=== PATIENT | female | born 1985 | race Caucasian/White ===

== ENCOUNTER 2016-07-24 12:30 | Inpatient (IN) | payer OTHER ==
[2016-07-24 13:27] LABS: % IMMATURE GRANULYOCYTES 0.5 % (0.0-1.1); ABSOLUTE IMMATURE GRANULOCYTES 0.04 10^3/uL (0.00-0.10); ADD DIFF? NO; ADD MORPH? NO; ADD SCAN? NO; ATYPICAL LYMPHOCYTE FLAG 10 (0-99); FRAGMENT RBC FLAG 0 (0-99); HEMATOCRIT 40.6 % (38.0-47.0); HEMOGLOBIN 13.3 g/dL (12.6-16.3); LEFT SHIFT FLG 0 (0-99); LIPEMIA HEMOLYSIS FLAG 80 (0-99); MEAN CELL HEMOGLOBIN 28.9 pg (27.9-34.1); MEAN CELL HEMOGLOBIN CONCENTR. 32.8 g/dL (32.4-36.7); MEAN CELL VOLUME 88.1 fL (81.5-99.8); MEAN PLATELET VOLUME 11.7 fL (8.7-11.7); PLATELET CLUMPS FLAG 0 (0-99); PLATELET COUNT 179 10^3/uL (150-400); RED BLOOD CELL COUNT 4.61 10^6/uL (4.18-5.33); RED CELL DISTRIBUTION WIDTH 12.6 % (11.5-15.2)
[2016-07-24 13:48] LABS: ANION GAP 10 mEq/L (8-16); CALCIUM 9.5 mg/dL (8.5-10.4); CARBON DIOXIDE 23 mEq/l (22-31); CHLORIDE 109 mEq/L (97-110); CREATININE 0.9 mg/dL (0.6-1.0); ETHANOL SERUM < 10 mg/dL (0-10); GLOMERULAR FILTRATION RATE > 60; GLUCOSE 87 mg/dL (70-100); POTASSIUM 4.1 mEq/L (3.5-5.2); SODIUM 142 mEq/L (134-144)
--- NOTE | 2016-07-24 14:22 | EDPHY ---
H & P Stated Complaint: off meds 1 year having depressive crisis(brought in with counselor) Source: Patient Exam Limitations: No limitations - Personal History LMP (Females 10-55): 22-28 Days Ago Current Tetanus/Diphtheria Vaccine: No - Medical/Surgical History Hx Asthma: No Hx Chronic Respiratory Disease: No Hx Diabetes: No Hx Cardiac Disease: No Hx Renal Disease: No Hx Cirrhosis: No Hx Alcoholism: No Hx HIV/AIDS: No Hx Splenectomy or Spleen Trauma: No Other PMH: depression mood disorder - Family History Significant Family History: No pertinent family hx - Social History Smoking Status: Never smoked Alcohol Use: Rarely Drug Use: None Time Seen by Provider: 07/24/16 13:50 HPI/ROS: HPI: 31-year-old female presents to emergency department voluntarily with chief concern suicidal ideation. Has a diagnosis of bipolar 2, rapid cycling, major depressive disorder. Took herself off of her psychiatric medications a year ago. States she wants to go to sleep and not wake up. Rates her desire to end her life 5/10. Has no definite suicide plan. Has 3 previous suicide attempts in the past. No homicidal ideation. Denies having been an inpatient in any psych facility. Denies alcohol or drug use. Denies visual or auditory hallucination. Denies fever, chills, myalgias, URI symptoms, shortness of breath, chest pain, abdominal pain, nausea, vomiting, diarrhea. ROS:10 point review of systems is negative other than as stated in HPI (Tonia Damian) - Physical Exam Exam: Vital signs stable, reviewed by me General: Awake, alert, calm, cooperative. No acute distress. Head: Normalocephalic. Atraumatic. EENT: PERRLA. EOMI. No pallor or injection. Anicteric. No nystagmus. No injection. TMs intact bilaterally with normal landmarks. No rhinnorhea, nasal passages clear. Oropharynx without redness, exudates, or lesions. Tonsils 2+ bilaterally, no exudates. Neck: Supple, nontender. No lymphadenopathy. Full range of motion. No meningismus. Respiratory: Breathing unlabored. Breath sounds equal bilaterally and clear to auscultation. No adventitious sounds. CV: Chest nontender, atraumatic. Heart rate regular. No murmur, distal pulses 2+ bilaterally. Brisk cap refill all extremities. GI: Abdomen soft, nontender. Bowel sounds normoactive and positive x4 quadrants. : No suprapubic tenderness. No CVA or flank tenderness. Neuro: Alert. Oriented x 3. Speech clear. Nonfocal cranial nerves throughout. Sensation intact all extremities. Skin: Skin warm, dry, intact. No rashes, abrasions, or lacerations. Skin turgor normal. Extremities: Full range of motion in all 4 extremities. Strength 5+ all extremities. Mental status: Tearful, cooperative, avoids eye contact (Tonia Damian) Constitutional: Initial Vital Signs Temperature (C) 36.7 C 07/24/16 12:38 Heart Rate 72 07/24/16 12:38 Respiratory Rate 16 07/24/16 12:38 Blood Pressure 125/56 H 07/24/16 12:38 O2 Sat (%) 97 07/24/16 12:38 O2 Delivery Mode Room Air Allergies/Adverse Reactions: No Known Allergies Allergy (Unverified 07/24/16 12:37) Home Medications: Medication Instructions Recorded Ethinyl Estradiol/Drospirenone 1 each PO DAILY 07/24/16 [Loryna 3 mg-0.02 mg Tablet] Multivitamins [Multivitamin (*)] 1 each PO DAILY 07/24/16 Medical Decision Making ED Course/Re-evaluation: 1430: 31-year-old female presents to emergency department voluntarily with suicidal ideation and depression. Took herself off of her medications 1 year ago. Has no therapist or counselor presently. Has no definite suicide plan but rates her desire to end her life 5/10. Has 3 previous suicide attempts. Medical history includes bipolar 2 with rapid cycling. Patient has been placed on M1 hold pending mental health evaluation. She is medically clear. 1844: Patient has been med cleared. Mental health eval pending. Care of this patient transferred to my colleague Dr. Carey Almanza (Tonia Damian) 2129: The patient is signed out to Dr. Sydni Thompson at change of shift. The patient is stable. (Carey Almanza) I assumed care of the patient at 9:30 p.m.. At midnight, the patient's care was assumed by Dr. Jose Guadalupe Martines. We are currently awaiting admission to [address] [place] [address]. (Sydni Thompson) 0005 care assumed by me from Dr. Romero. Patient pending admission to [address] [place] [address]. 0100 patient has been accepted to [address] Ahumada. I have completed the EMTALA form. (Blayne Martines) Differential Diagnosis: Differential includes but is not limited to functional and major depression, situational depression, anxiety, schizophrenia, bipolar, drug or alcohol related , acute psychosis, metabolic derangement, infection (Tonia Damian) - Data Points Laboratory Results: Laboratory Results 07/24/16 13:10 07/24/16 13:10 07/24/16 07/24/16 13:10 13:10 TSH 2.200 uIU/mL uIU/mL (0.465-4.680) Urine Opiates Screen NEGATIVE (NEGATIVE) Urine Barbiturates NEGATIVE (NEGATIVE) Ur Phencyclidine Scrn NEGATIVE (NEGATIVE) Ur Amphetamine Screen NEGATIVE (NEGATIVE) U Benzodiazepines Scrn NEGATIVE (NEGATIVE) Urine Cocaine Screen NEGATIVE (NEGATIVE) U Marijuana (THC) Screen NEGATIVE (NEGATIVE) Departure - Departure Disposition: Home, Routine, Self-Care Clinical Impression: Suicidal ideation, Depression, Bipolar II disorder Condition: Good
[2016-07-25] MEDS ORDERED: ACETAMINOPHEN 325 MG TAB PO PRN (02:40)
[2016-07-25] MEDS ORDERED: NICOTINE POLACRILEX 2 MG GUM B PRN (02:40)
[2016-07-25] MEDS ORDERED: MAG HYDROX/AL HYDROX/SIMETH 30 ML UDCUP PO PRN (02:40)
[2016-07-25] MEDS ORDERED: MAGNESIUM HYDROXIDE 30 ML UDCUP PO PRN (02:40)
[2016-07-25] MEDS ORDERED: DROSPIRENONE PO SCH ×2 (09:00→13:00)
[2016-07-25] MEDS ORDERED: ETHINYL ESTRADIOL PO SCH ×2 (09:00→13:00)
[2016-07-25] MEDS ORDERED: [UNRECOGNIZED DRUG - OTHER] PO SCH (13:00)
[2016-07-25] MEDS ORDERED: LEVONORGESTREL ETHIN ESTRADIOL PO SCH (13:00)
[2016-07-25] MEDS: LEVONORGESTREL ETHIN ESTRADIOL PO SCH (13:15)
[2016-07-25] MEDS: ZOLPIDEM TARTRATE 5 MG TAB PO PRN (21:05)
--- NOTE | 2016-07-25 22:32 | BCON ---
[f rep ] BEHAVIORAL HEALTH CONSULTATION INTERNAL MEDICINE CONSULTATION DATE OF CONSULTATION: 07/25/2016 REFERRING PHYSICIAN: Elaine Ahumada MD REASON FOR CONSULTATION: Medical clearance for inpatient behavioral health stay. HISTORY OF PRESENT ILLNESS: The patient was referred to the emergency department for evaluation after reporting that she felt depressed and suicidal at work. She was admitted for further psychiatric care. She is currently without any medical complaints. PAST MEDICAL HISTORY: She reports history of cosmetic surgeries. Bipolar disorder. She denies any history of medical illnesses. MEDICATIONS: She was taking control pill and a multivitamin. ALLERGIES: There are no known drug allergies. SOCIAL HISTORY: She is . She lives in an apartment. She has a boyfriend, who is moving from [place]. She is a nonsmoker. She has a history of alcohol use, and problems with drinking at times in the past, but also sobriety, and is not currently abusing alcohol. She does not indulge in other substances of abuse. FAMILY HISTORY: There is a history of mental illness in the family. PHYSICAL EXAMINATION: VITAL SIGNS: Blood pressure is 118/71, heart rate is 71 , respiratory rate is 14, oxygen saturation is 98% on room air. Temperature is 36.8 degrees centigrade. Her weight is 74.8 kg for a body mass index of 25.8. GENERAL: This is a well-nourished, well-developed woman, appears her chronologic age, well groomed, cooperative, and in no acute distress. HEENT: Extraocular movements are intact. Pupils are equal, round, and reactive to light. Mucous membranes are moist. Dentition is in good condition. NECK: Supple. HEART: There is a regular rate and rhythm, with no murmurs, rubs, or gallops. LUNGS: Clear to auscultation bilaterally. ABDOMEN: Soft, nontender , nondistended, with normoactive bowel sounds. EXTREMITIES: There is no cyanosis, clubbing, or edema. NEUROLOGIC: She is alert and oriented x3. Cranial nerves 2-12 are grossly intact. There is no focal weakness, and sensation is intact to light touch. LABORATORY DATA: Drawn in the emergency department, CBC and serum chemistries were within normal limits. TSH was normal at 2.2. Beta hCG was negative for . Toxicology screen in the serum was negative for ethyl alcohol, and the urine was negative for any substances of abuse. ASSESSMENT AND RECOMMENDATIONS: 1. Mental health issues. Pending further evaluation and management per Psychiatry and the Mental Health team. 2. Normal examination. I see no medical contraindications to the patient's continued stay on the inpatient behavioral health unit or to any psychiatric medications or procedures. Thank you very much for including me in the care of this patient, and please do not hesitate to contact me or the Hospitalist service should there be need for further medical evaluation. /[id number]/MODL MTDD
[2016-07-26] MEDS: LEVONORGESTREL ETHIN ESTRADIOL PO SCH (08:12)
--- NOTE | 2016-07-26 14:44 | BAPA ---
[f rep st] ADMISSION PSYCHIATRIC ASSESSMENT PATIENT IDENTIFICATION: The patient is presents as a 31-year-old white female, who currently is not an identified psychiatric outpatient in the community. She lives in her own apartment with her boyfriend, works full-time as an corporate accountant for [employer]. She is admitted on an M1 hold at [address] [place] [address] for complaints of a depressive crisis, which has included intermittent passive suicidal ideation. CHIEF COMPLAINT: "I just needed to come in and get some help, to get on medications at work." HISTORY OF PRESENT ILLNESS: The patient presents with a chronic history of affective instability, with a preponderance of recurrent episodes of depression. She has been diagnosed in the past as suffering from a Bipolar Disorder - type 2, with question of rapid cycling versus a Major Depressive Disorder with recurrent episodes associated with anxiety. More recently, the patient has been untreated for an extended period of time. She was earlier in 2015 from her first , while still living in [place]. She decided to move to [facility] "to get a fresh start." Prior to the move she had established herself in a new romantic relationship. 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 She reports that her depression in this untreated status was at a [id number] level prior to and since the move to [place] 6 months ago. She began to experience an emerging intensification of depressive symptoms over the last several months , which continued to intensify up through the day of admission. She began to experience suicidal ideation along with severe depressive pain, such that she sought out a clinical contact with her employers, [employer], on the day of admission. The evaluating clinician recommended patient move on for an evaluation at the [facility] emergency room, which she complied with. There she completed a medical and psychiatric assessment. She was medically stable, with an unremarkable physical exam. Medical lab screens included a CBC, BMP, beta HCG , alcohol blood level, toxic screen, and TSH screen. All lab tests were unremarkable and/or within normal limits. Psychiatric assessment by [facility] affirmed the patient's recent exacerbation depressively, as well as current mental status. Patient describes seriously disrupted sleep, diminished p.o. intake, painful dysphoric mood, anhedonia, psychomotor retardation, diminished motivation. There is no evidence for psychosis, but patient did acknowledge the surging intensity of her depressive pain and passive suicidal ideation. She was deemed to be at risk for self-harm , and in need of an inpatient intervention. She was placed on an M1 hold and sent on for admission to [address] [place] [address]. PAST PSYCHIATRIC HISTORY: The patient states that she began to experience mood state variability and severe depression emerging in her mid teens. She said this intensified over a period of several years. At age 19 patient stated she was in a depressive crisis, attempted suicide with lethal intention by overdose in her family's home. She was hospitalized as a psychiatric inpatient for the first time, diagnosed as having a Bipolar 2 Disorder - question rapid cycling. She was discharged to outpatient followup, including psychotherapy and medication management which initially included medication regimen of Lamictal, which extended over 2 years, and to which she states she had a partial response. Since then she has continued in intermittent incidents of outpatient treatment, primarily medical management. She has not been hospitalized again until this current hospitalization. She denies any further history of suicide attempts, although she has experienced suicidal ideation occurring in recurrent depressive episodes. She approximates sustaining outpatient treatment approximately 50% of the last 12 years. She states her mood state cycles as follows: She experiences a mild to moderate increase of energy and increased well-being for extended periods of 2-3 months - onset of change is rapid. She describes these states as functional and "feeling well." She continues to sleep , but to a lesser extent at 5-6 hours per night in this state. She is able to work and manage her life effectively through these times. She then experiences the gradual emergence of lessening energy, fatigue, and dysphoric mood. She states the affective change plateaus as a mild to moderate vegetative depression. This state extends for 3-4 months, and then she usually experiences exacerbation of the depression to much more acute levels. Over the years she has used a variety of medications. More recently, within the past 18- 24 months, she has had trials of Bupropion dosed to 450 mg daily, Lamictal 50 mg daily, Abilify 2 mg daily, Prozac 20 mg daily, Neurontin dose to 600 mg daily. She reports she has partially responded to Bupropion and Lamictal in the past. She is unclear whether other medications have been helpful. As stated, she has been untreated for approximately the past 12 months. During that time she has sustained the [id number] depression until the recent exacerbation over the last 2 months, which led to this hospitalization. PAST MEDICAL HISTORY: The patient has no active medical problems; S/P multiple cosmetic surgeries. ALLERGIES: Patient has no known medication, food, or environmental allergies. REVIEW OF SYSTEMS: Negative. SUBSTANCE ABUSE: Patient has a remote history of alcohol abuse intermittently. She states this has not been a problem for a period of several years. She also has a remote history of using cocaine and THC, but states she has not been active with these substances for a number of years. She denies any other substance use. LEGAL HISTORY: The patient denies current or past history. PERSONAL HISTORY/FAMILY HISTORY: The patient was born and raised in a family of origin consisting of biologic parents, 2 sisters, and 1 brother. She denies a history of abuse and/or trauma in the family.. Patient says there is depressive pedigree on the paternal side of the family, including her father who suffered depressions, as well as one paternal family member has been diagnosed and treated for a Bipolar Disorder. Patient has graduated high school and college. She was for a period of 5 years, ages 25 to 30, in 2016. She is childless and denies having had pregnancies. She states she has been socially successful in developing friendships, and feels she has adapted well to the [place] community and her current job, despite the persistence of her depressive syndrome as referenced above. MENTAL STATUS EXAM: The patient presents as an adult female looking her stated age. She is well-kempt, presents with normal gait and station, engages the session in a cooperative, relatively calm, and conversant manner. The patient' s mood state is moderately dysphoric, expression of affect constricted, consistent with her overall syndrome of depression. Patient does acknowledge passive suicidal ideation prior to admission, but denies current ideation and states she can be safe on the unit. She is alert and oriented x4, memory function across all domains is intact. Patient's intelligence appears average, associated with her vocabulary, language syntax, and fund of information. Her thought process is logical, linear, and goal-focused. She appears to openly disclose responses to my questions in this initial contact. The patient's insight is poor to fair, judgment fair, and impulse control intact. ADL functions are intact and appropriate for her age. She appears to be invested in the inpatient intervention for treatment and workup purposes. Session focuses on staging the mental status, obtaining a syndrome on treatment history , and overview of lifeline history. FORMULATION: The patient presents with a chronic history for syndromal depression. She also has mood state changes consistent with mood cyclic changes to a muted hypomanic state as described. Her cycles are extended, and may not fit a rapid cycling time table. This is her second hospitalization, with the first occurring at age 19. There has been no history of suicide attempts since the overdose which prompted the hospitalization at age 19. She has been treated with interventions of psychotherapy and medication management at least 50% of the time over the last 12 years. She has had a partial response to some psychoactive medications, and identifies Bupropion and Lamictal as helpful in previous interventions. She currently is in a 2-month progressive history of intensifying depressive symptoms, to the point of acute crisis with suicidal ideation. She appears to be motivated with the inpatient intervention to achieve mental status restabilization, complete a workup, and invest in a followup treatment. ADMISSION DIAGNOSES: Welch I: 1. Rule out Major Depressive Disorder - chronic in duration, recurrent in pattern, currently in state of exacerbation. 2. Rule out Bipolar Disorder - type 2 - preponderance of depressive episodes along with question of muted and mild hypomanic cycles. 3. Alcohol Abuse Disorder - currently in remission. 4. Remote history of Cocaine Use Disorder - in extended remission. Welch II: Deferred. Welch III: 1. No active medical problems. Medical history noncontributory. 2. Status post multiple cosmetic surgeries. Welch IV: Relatively recent divorce with residual sadness; no other identified circumstantial and/or dynamic stressor. Welch V: Admission Global Assessment of Functioning, 35. TREATMENT PLAN: 1. Nursing - completed admission assessment; monitor patient for safety and suicidality; reinforce compliance with cares and medications; orient patient to unit milieu and group program and encourage participation. 2. Psychiatry - complete psych psychiatric assessment; provide daily E/M contacts, complete workup, provide medication assessment and management, provide reintegrated psychotherapeutic contacts, and prepare patient for alliance to linked discharge. 3. Clinical Coordinator: Daily contacts to expand the database including contact with relevant collaterals; identify discharge resources and link patient in timely fashion to followup treatment post discharge. 4. Admission medical consultation pending. 5. Medications: We will assess carefully in first phase and implement initial medication trial. 6. Prioritized inpatient goals: Stabilize mental status sufficient for discharge; complete diagnostic workup to inform discharge planning; Ally patient with followup treatment post-discharge to linked resources. /[id number]/MODL MTDD
--- NOTE | 2016-07-27 08:25 | SOAPPROG ---
[facility] Progress Note Assessment/Plan: Assessment: Plan: 07/26/16 16:30 DAY ' UPDATE/EXAM: Nursing reports pt is c/w cares/meds, slept better using Ambien. remains residually depressed and isolative/ on exam directly is disclosing in detail about her chronc syndromal history, meds response history; currently denies SI and is positive in engaging the workup and rx plan; more at ease since contacting work and knowing her job is secure; pt will obtain [facility] printout of meds prescribed over the past 1-2 years and get that to me today. ASSESSMENT/PLAN: residual depressive acuity - pt allying with inpt rx plan/ anticipate initiating definitve meds trial later today after reviewing [facility] spreadsheet of prescription history Objective: Vital Signs Temp Pulse Resp BP Pulse Ox 36.7 C 67 16 92/46 L 95 07/27/16 06:00 07/27/16 06:00 07/27/16 06:00 07/27/16 06:00 07/27/16 06:00 ICD10 Worksheet Patient Problems: Problems Problem Status Onset Bipolar II disorder Acute Depression Acute Suicidal ideation Acute
[2016-07-27] MEDS: buPROPion XL 150 MG TAB PO SCH (08:42)
[2016-07-27] MEDS: LEVONORGESTREL ETHIN ESTRADIOL PO SCH (08:43)
--- NOTE | 2016-07-27 14:44 | SOAPPROG ---
NI Progress Note Assessment/Plan: Assessment: Plan: 07/26/16 16:30 DAY ' UPDATE/EXAM: Nursing reports pt is c/w cares/meds, slept better using Ambien. remains residually depressed and isolative/ on exam directly is disclosing in detail about her chronc syndromal history, meds response history; currently denies SI and is positive in engaging the workup and rx plan; more at ease since contacting work and knowing her job is secure; pt will obtain [facility] printout of meds prescribed over the past 1-2 years and get that to me today. ASSESSMENT/PLAN: residual depressive acuity - pt allying with inpt rx plan/ anticipate initiating definitive meds trial later today after reviewing [facility] spreadsheet of prescription history 07/27/16 14:26 DAY UPDATE/EXAM: Nursing reports pt telling staff that she slept well without Ambien and today her syndromal depression is slightly better a/w mood and energy ; she did start her Bupropion XL trial today @ 150 mg qam and is starting Abilify 2 mg bid today/ on direct exam she appears brighter, more spontaneous and more toned in speech; she thinks this is the natural course of her affective cycle declaring itself and she is slowly moving into her "wellness phase"; med reviewed and she accepts starting the Abilify today. ASSESSMENT/PLAN: improving likely secondary to cycle change as referenced/ continue workup and initiate Abilify trial Objective: Vital Signs Temp Pulse Resp BP Pulse Ox 36.7 C 67 16 92/46 L 95 07/27/16 06:00 07/27/16 06:00 07/27/16 06:00 07/27/16 06:00 07/27/16 06:00 ICD10 Worksheet Patient Problems: Problems Problem Status Onset Bipolar II disorder Acute Depression Acute Suicidal ideation Acute
[2016-07-27] MEDS: ARIPiprazole 2 MG TAB PO SCH ×2 (15:06→18:19)
[2016-07-27] MEDS ORDERED: ARIPiprazole 2 MG TAB PO SCH (21:00)
--- NOTE | 2016-07-28 06:43 | SOAPPROG ---
NI Progress Note Assessment/Plan: Assessment: Plan: 07/26/16 16:30 DAY ' UPDATE/EXAM: Nursing reports pt is c/w cares/meds, slept better using Ambien. remains residually depressed and isolative/ on exam directly is disclosing in detail about her chronic syndromal history, meds response history; currently denies SI and is positive in engaging the workup and rx plan; more at ease since contacting work and knowing her job is secure; pt will obtain [facility] printout of meds prescribed over the past 1-2 years and get that to me today. ASSESSMENT/PLAN: residual depressive acuity - pt allying with inpt rx plan/ anticipate initiating definitive meds trial later today after reviewing [facility] spreadsheet of prescription history 07/27/16 14:26 DAY UPDATE/EXAM: Nursing reports pt telling staff that she slept well without Ambien and today her syndromal depression is slightly better a/w mood and energy ; she did start her Bupropion XL trial today @ 150 mg qam and is starting Abilify 2 mg bid today/ on direct exam she appears brighter, more spontaneous and more toned in speech; she thinks this is the natural course of her affective cycle declaring itself and she is slowly moving into her "wellness phase"; med reviewed and she accepts starting the Abilify today. ASSESSMENT/PLAN: improving likely secondary to cycle change as referenced/ continue workup and initiate Abilify trial 07/28/16 DAY UPDATE: Objective: Vital Signs Temp Pulse Resp BP Pulse Ox 36.9 C 71 15 97/50 L 94 07/28/16 06:00 07/28/16 06:00 07/28/16 06:00 07/28/16 06:00 07/28/16 06:00 ICD10 Worksheet Patient Problems: Problems Problem Status Onset Bipolar II disorder Acute Depression Acute Suicidal ideation Acute
[2016-07-28] MEDS: buPROPion XL 150 MG TAB PO SCH (08:03)
[2016-07-28] MEDS: ARIPiprazole 2 MG TAB PO SCH (08:04)
[2016-07-28] MEDS: LEVONORGESTREL ETHIN ESTRADIOL PO SCH (08:04)
--- NOTE | 2016-07-28 13:56 | SOAPPROG ---
SOAP Progress Note Assessment/Plan: Assessment: Plan: 07/26/16 16:30 DAY ' UPDATE/EXAM: Nursing reports pt is c/w cares/meds, slept better using Ambien. remains residually depressed and isolative/ on exam directly is disclosing in detail about her chronic syndromal history, meds response history; currently denies SI and is positive in engaging the workup and rx plan; more at ease since contacting work and knowing her job is secure; pt will obtain [facility] printout of meds prescribed over the past 1-2 years and get that to me today. ASSESSMENT/PLAN: residual depressive acuity - pt allying with inpt rx plan/ anticipate initiating definitive meds trial later today after reviewing [facility] spreadsheet of prescription history 07/27/16 14:26 DAY UPDATE/EXAM: Nursing reports pt telling staff that she slept well without Ambien and today her syndromal depression is slightly better a/w mood and energy ; she did start her Bupropion XL trial today @ 150 mg qam and is starting Abilify 2 mg bid today/ on direct exam she appears brighter, more spontaneous and more toned in speech; she thinks this is the natural course of her affective cycle declaring itself and she is slowly moving into her "wellness phase"; med reviewed and she accepts starting the Abilify today. ASSESSMENT/PLAN: improving likely secondary to cycle change as referenced/ continue workup and initiate Abilify trial 07/28/16 13:47 DAY UPDATE: Nursing report over past 24 hr pt has shown some variability in mood with observed irritability and dysphoris but on balance is improving; she continues to sleep better, c/w meds and cares, is attending groups. ON EXAM: presents as calm, conversant, cooperative;thoughts organized, josé sI ; does describe the above mentioned irritability and sense of "apathy" - she and I discuss the natural vulnerability to state change and the possibility of medication side effect; meds reviewed in more detail and we agree to moniot her mental status only and she continues to affirm that her improving slope is continuing; meds changes discussed and referenced. ASSESSMENT/PLAN: im;roving course sustained b/w ? today of depressive slippage or side effects/ will add Lamictal 25 mg hs, increase Bupropion XL to 300 mg qam and increase Abilify to 5 mg qam; sustain management plan with no change Objective: Vital Signs Temp Pulse Resp BP Pulse Ox 36.9 C 71 15 97/50 L 94 07/28/16 06:00 07/28/16 06:00 07/28/16 06:00 07/28/16 06:00 07/28/16 06:00 ICD10 Worksheet Patient Problems: Problems Problem Status Onset Bipolar II disorder Acute Depression Acute Suicidal ideation Acute
[2016-07-28] MEDS: lamoTRIgine 25 MG TAB PO SCH (20:19)
--- NOTE | 2016-07-29 07:52 | SOAPPROG ---
SOAP Progress Note Assessment/Plan: Assessment: Plan: 07/26/16 16:30 DAY ' UPDATE/EXAM: Nursing reports pt is c/w cares/meds, slept better using Ambien. remains residually depressed and isolative/ on exam directly is disclosing in detail about her chronic syndromal history, meds response history; currently denies SI and is positive in engaging the workup and rx plan; more at ease since contacting work and knowing her job is secure; pt will obtain [facility] printout of meds prescribed over the past 1-2 years and get that to me today. ASSESSMENT/PLAN: residual depressive acuity - pt allying with inpt rx plan/ anticipate initiating definitive meds trial later today after reviewing [facility] spreadsheet of prescription history 07/27/16 14:26 DAY UPDATE/EXAM: Nursing reports pt telling staff that she slept well without Ambien and today her syndromal depression is slightly better a/w mood and energy ; she did start her Bupropion XL trial today @ 150 mg qam and is starting Abilify 2 mg bid today/ on direct exam she appears brighter, more spontaneous and more toned in speech; she thinks this is the natural course of her affective cycle declaring itself and she is slowly moving into her "wellness phase"; med reviewed and she accepts starting the Abilify today. ASSESSMENT/PLAN: improving likely secondary to cycle change as referenced/ continue workup and initiate Abilify trial 07/28/16 13:47 DAY UPDATE: Nursing report over past 24 hr pt has shown some variability in mood with observed irritability and dysphoria but on balance is improving; she continues to sleep better, c/w meds and cares, is attending groups. ON EXAM: presents as calm, conversant, cooperative;thoughts organized, denies SI ; does describe the above mentioned irritability and sense of "apathy" - she and I discuss the natural vulnerability to state change and the possibility of medication side effect; meds reviewed in more detail and we agree to moniot her mental status only and she continues to affirm that her improving slope is continuing; meds changes discussed and referenced. ASSESSMENT/PLAN: improving course sustained b/w ? today of depressive slippage or side effects/ will add Lamictal 25 mg hs, increase Bupropion XL to 300 mg qam and increase Abilify to 5 mg qam; sustain management plan with no change Objective: Vital Signs Temp Pulse Resp BP Pulse Ox 36.8 C 78 16 108/63 96 07/29/16 06:00 07/29/16 06:00 07/29/16 06:00 07/29/16 06:00 07/29/16 06:00 ICD10 Worksheet Patient Problems: Problems Problem Status Onset Bipolar II disorder Acute Depression Acute Suicidal ideation Acute
[2016-07-29] MEDS ORDERED: buPROPion XL 150 MG TAB PO SCH (09:00)
[2016-07-29] MEDS ORDERED: ARIPiprazole 5 MG TAB PO SCH (09:00)
[2016-07-29] MEDS: LEVONORGESTREL ETHIN ESTRADIOL PO SCH (09:14)
[2016-07-29] MEDS: LORazepam 0.5 MG TAB PO PRN ×2 (09:14→17:27)
[2016-07-29] MEDS: lamoTRIgine 25 MG TAB PO SCH (20:17)
--- NOTE | 2016-07-29 23:52 | SOAPPROG ---
SOAP Progress Note Assessment/Plan: Assessment: 31yo SWF with BMD II 07/29/16 16:13 Per staff, slept 8hr. Has been in room most of day feeling nauseated, with basin at bedside. Reports not feeling well due to nausea, took prn ativan earlier today. MSE: Lying in bed on side, calm, cooperative, casually dressed, good eye contact , nml rate/vol speech, decr psychom activity, mood "a little tired," affect restricted but appropriate to how feeling, thoughts linear/goal-directed. Denied feeling particulary depressed or hypomanic, no SI/HI or any psychotic sxs. Denied any med s/e except the nausea, and until this AM med dose was feeling fine with med regimen. Still wanting to take meds as per plan, discussed slower up titration of Wellbutrin which was most likely culprit. States was on WB 150, Abilify 2/2 and Lamictal 25 started last night, with today dose WB 300 + Abilify 5 (and Lamictal 25mg tonight). Discussed options and pt agreed to below: PLAN: -cont Lamictal 25mg HS -Decr Wellbutrin to 150mg qAM with plan for uptitration in a few more days as tolerated -Change Abilify 5mg to 2.5mg BID, then change back to 5mg QD once feeling better. Objective: Vital Signs Temp Pulse Resp BP Pulse Ox 36.8 C 78 16 108/63 96 07/29/16 06:00 07/29/16 06:00 07/29/16 06:00 07/29/16 06:00 07/29/16 06:00 - Time Spent With Patient Time Spent With Patient: 35min - Pending Discharge Pending Discharge Within 24 Hours: No Pending Discharge Within 48 Hours: No ICD10 Worksheet Patient Problems: Problems Problem Status Onset Bipolar II disorder Acute Depression Acute Suicidal ideation Acute
[2016-07-30] MEDS: ARIPiprazole 5 MG TAB PO SCH ×2 (08:51→20:38)
[2016-07-30] MEDS: buPROPion SR 150 MG TAB PO SCH (08:52)
[2016-07-30] MEDS: LEVONORGESTREL ETHIN ESTRADIOL PO SCH (08:53)
--- NOTE | 2016-07-30 15:27 | SOAPPROG ---
SOAP Progress Note Assessment/Plan: Assessment: 31yo SWF with BMD II admitted with SI 07/29/16 16:13 Per staff, slept 8hr. Has been in room most of day feeling nauseated, with basin at bedside. Reports not feeling well due to nausea, took prn ativan earlier today. MSE: Lying in bed on side, calm, cooperative, casually dressed, good eye contact , nml rate/vol speech, decr psychom activity, mood "a little tired," affect restricted but appropriate to how feeling, thoughts linear/goal-directed. Denied feeling particulary depressed or hypomanic, no SI/HI or any psychotic sxs. Denied any med s/e except the nausea, and until this AM med dose was feeling fine with med regimen. Still wanting to take meds as per plan, discussed slower up titration of Wellbutrin which was most likely culprit. States was on WB 150, Abilify 2/2 and Lamictal 25 started last night, with today dose WB 300 + Abilify 5 (and Lamictal 25mg tonight). Discussed options and pt agreed to below: PLAN: -cont Lamictal 25mg HS -Decr Wellbutrin to 150mg qAM with plan for up titration in a few more days as tolerated -Change Abilify 5mg to 2.5mg BID, then change back to 5mg QD once feeling better. 07/30/16 15:25 slept 7hr, feeling much better physically this AM without any nausea reports mood stable, no nausea, feeling "a lot" better, had surprise visit from stepmother today which was nice. continues to express motivation for treatment. does think she will ultimately need the higher Wellbutrin dose, but agreeable to slower up titration as discussed. MSE: calm, nml speech, brighter affect, mood "better", thoughts linear, no si/ hi or ah/vh, good insight. PLAN: -change Abilify to 5mg tomorrow AM from 2.5bid -cont Wellbutrin 150mg QAM, and Lamictal 25mg HS. may tolerate further incr in WB later this week -client care specialist will refer for therapy incl DBT as outpatient. patient hoping there are evening options due to potential work conflicts during day (altho maybe could ask for an MD excuse) Objective: Vital Signs Temp Pulse Resp BP Pulse Ox 36.8 C 91 15 116/56 L 95 07/30/16 06:00 07/30/16 06:00 07/30/16 06:00 07/30/16 06:00 07/30/16 06:00 - Time Spent With Patient Time Spent With Patient: 20min - Pending Discharge Pending Discharge Within 24 Hours: No Pending Discharge Within 48 Hours: No ICD10 Worksheet Patient Problems: Problems Problem Status Onset Bipolar II disorder Acute Depression Acute Suicidal ideation Acute
[2016-07-30] MEDS: lamoTRIgine 25 MG TAB PO SCH (20:38)
--- NOTE | 2016-07-31 06:23 | SOAPPROG ---
SOAP Progress Note Assessment/Plan: Assessment: Plan: 07/26/16 16:30 DAY ' UPDATE/EXAM: Nursing reports pt is c/w cares/meds, slept better using Ambien. remains residually depressed and isolative/ on exam directly is disclosing in detail about her chronic syndromal history, meds response history; currently denies SI and is positive in engaging the workup and rx plan; more at ease since contacting work and knowing her job is secure; pt will obtain [facility] printout of meds prescribed over the past 1-2 years and get that to me today. ASSESSMENT/PLAN: residual depressive acuity - pt allying with inpt rx plan/ anticipate initiating definitive meds trial later today after reviewing [facility] spreadsheet of prescription history 07/27/16 14:26 DAY UPDATE/EXAM: Nursing reports pt telling staff that she slept well without Ambien and today her syndromal depression is slightly better a/w mood and energy ; she did start her Bupropion XL trial today @ 150 mg qam and is starting Abilify 2 mg bid today/ on direct exam she appears brighter, more spontaneous and more toned in speech; she thinks this is the natural course of her affective cycle declaring itself and she is slowly moving into her "wellness phase"; med reviewed and she accepts starting the Abilify today. ASSESSMENT/PLAN: improving likely secondary to cycle change as referenced/ continue workup and initiate Abilify trial 07/28/16 13:47 DAY UPDATE: Nursing report over past 24 hr pt has shown some variability in mood with observed irritability and dysphoria but on balance is improving; she continues to sleep better, c/w meds and cares, is attending groups. ON EXAM: presents as calm, conversant, cooperative;thoughts organized, denies SI ; does describe the above mentioned irritability and sense of "apathy" - she and I discuss the natural vulnerability to state change and the possibility of medication side effect; meds reviewed in more detail and we agree to moniot her mental status only and she continues to affirm that her improving slope is continuing; meds changes discussed and referenced. ASSESSMENT/PLAN: improving course sustained b/w ? today of depressive slippage or side effects/ will add Lamictal 25 mg hs, increase Bupropion XL to 300 mg qam and increase Abilify to 5 mg qam; sustain management plan with no change 07/31/16 DAY ' UPDATE: Objective: Vital Signs Temp Pulse Resp BP Pulse Ox 36.8 C 91 15 116/56 L 95 07/30/16 06:00 07/30/16 06:00 07/30/16 06:00 07/30/16 06:00 07/30/16 06:00 ICD10 Worksheet Patient Problems: Problems Problem Status Onset Bipolar II disorder Acute Depression Acute Suicidal ideation Acute
[2016-07-31] MEDS: buPROPion SR 150 MG TAB PO SCH (08:28)
[2016-07-31] MEDS: ARIPiprazole 5 MG TAB PO SCH ×2 (08:29→21:30)
[2016-07-31] MEDS: LEVONORGESTREL ETHIN ESTRADIOL PO SCH (08:29)
--- NOTE | 2016-07-31 13:34 | SOAPPROG ---
SOAP Progress Note Assessment/Plan: Assessment: Plan: 07/26/16 16:30 DAY ' UPDATE/EXAM: Nursing reports pt is c/w cares/meds, slept better using Ambien. remains residually depressed and isolative/ on exam directly is disclosing in detail about her chronic syndromal history, meds response history; currently denies SI and is positive in engaging the workup and rx plan; more at ease since contacting work and knowing her job is secure; pt will obtain [facility] printout of meds prescribed over the past 1-2 years and get that to me today. ASSESSMENT/PLAN: residual depressive acuity - pt allying with inpt rx plan/ anticipate initiating definitive meds trial later today after reviewing [facility] spreadsheet of prescription history 07/27/16 14:26 DAY UPDATE/EXAM: Nursing reports pt telling staff that she slept well without Ambien and today her syndromal depression is slightly better a/w mood and energy ; she did start her Bupropion XL trial today @ 150 mg qam and is starting Abilify 2 mg bid today/ on direct exam she appears brighter, more spontaneous and more toned in speech; she thinks this is the natural course of her affective cycle declaring itself and she is slowly moving into her "wellness phase"; med reviewed and she accepts starting the Abilify today. ASSESSMENT/PLAN: improving likely secondary to cycle change as referenced/ continue workup and initiate Abilify trial 07/28/16 13:47 DAY UPDATE: Nursing report over past 24 hr pt has shown some variability in mood with observed irritability and dysphoria but on balance is improving; she continues to sleep better, c/w meds and cares, is attending groups. ON EXAM: presents as calm, conversant, cooperative;thoughts organized, denies SI ; does describe the above mentioned irritability and sense of "apathy" - she and I discuss the natural vulnerability to state change and the possibility of medication side effect; meds reviewed in more detail and we agree to monitor her mental status only and she continues to affirm that her improving slope is continuing; meds changes discussed and referenced. ASSESSMENT/PLAN: improving course sustained b/w ? today of depressive slippage or side effects/ will add Lamictal 25 mg hs, increase Bupropion XL to 300 mg qam and increase Abilify to 5 mg qam; sustain management plan with no change 07/31/16 13:02 DAY ' UPDATE/EXAM: Nursing reports pt was dyspeptic 07/29 and responded to dropping Wellbutrin from 300 mg t0 150 mg with resolution and did well the rest of the weekend including visit from stepmother/ on direct exam pt presents as calm and conversant, appears less dysphoric and report psychomotor energy improving; agrees with DC tomorrow and with smaller increase in Bupropion to of 75 mg, consider updosing Abilify in final meds assessment in AM; DC planing and associated goals discussed in detail ASSESSMENT/PLAN: descriptively improvement re-establish but did have side effects with increase of Bupropion to 300 mg 07/27/ will increase Bupropion to 225 mg and plan DC for tomorrow; will also increase Lamictal to 25 mg bid,CP focus on preparing patient for DC as d/w Nursing. Objective: Vital Signs Temp Pulse Resp BP Pulse Ox 37.0 C 88 16 106/56 L 95 07/31/16 06:00 07/31/16 06:00 07/31/16 06:00 07/31/16 06:00 07/31/16 06:00 ICD10 Worksheet Patient Problems: Problems Problem Status Onset Bipolar II disorder Acute Depression Acute Suicidal ideation Acute
[2016-07-31] MEDS: buPROPion 75 MG TAB PO SCH (13:44)
[2016-07-31] MEDS: lamoTRIgine 25 MG TAB PO SCH (21:29)
[2016-07-31] MEDS: ZOLPIDEM TARTRATE 5 MG TAB PO PRN (21:30)
--- NOTE | 2016-08-01 06:04 | SOAPPROG ---
SOAP Progress Note Assessment/Plan: Assessment: Plan: 07/26/16 16:30 DAY ' UPDATE/EXAM: Nursing reports pt is c/w cares/meds, slept better using Ambien. remains residually depressed and isolative/ on exam directly is disclosing in detail about her chronic syndromal history, meds response history; currently denies SI and is positive in engaging the workup and rx plan; more at ease since contacting work and knowing her job is secure; pt will obtain [facility] printout of meds prescribed over the past 1-2 years and get that to me today. ASSESSMENT/PLAN: residual depressive acuity - pt allying with inpt rx plan/ anticipate initiating definitive meds trial later today after reviewing [facility] spreadsheet of prescription history 07/27/16 14:26 DAY UPDATE/EXAM: Nursing reports pt telling staff that she slept well without Ambien and today her syndromal depression is slightly better a/w mood and energy ; she did start her Bupropion XL trial today @ 150 mg qam and is starting Abilify 2 mg bid today/ on direct exam she appears brighter, more spontaneous and more toned in speech; she thinks this is the natural course of her affective cycle declaring itself and she is slowly moving into her "wellness phase"; med reviewed and she accepts starting the Abilify today. ASSESSMENT/PLAN: improving likely secondary to cycle change as referenced/ continue workup and initiate Abilify trial 07/28/16 13:47 DAY UPDATE: Nursing report over past 24 hr pt has shown some variability in mood with observed irritability and dysphoria but on balance is improving; she continues to sleep better, c/w meds and cares, is attending groups. ON EXAM: presents as calm, conversant, cooperative;thoughts organized, denies SI ; does describe the above mentioned irritability and sense of "apathy" - she and I discuss the natural vulnerability to state change and the possibility of medication side effect; meds reviewed in more detail and we agree to monitor her mental status only and she continues to affirm that her improving slope is continuing; meds changes discussed and referenced. ASSESSMENT/PLAN: improving course sustained b/w ? today of depressive slippage or side effects/ will add Lamictal 25 mg hs, increase Bupropion XL to 300 mg qam and increase Abilify to 5 mg qam; sustain management plan with no change 07/31/16 13:02 DAY UPDATE/EXAM: Nursing reports pt was dyspeptic 07/29 and responded to dropping Wellbutrin from 300 mg t0 150 mg with resolution and did well the rest of the weekend including visit from stepmother/ on direct exam pt presents as calm and conversant, appears less dysphoric and reports psychomotor energy improving; agrees with DC tomorrow and with smaller increase in Bupropion of 75 mg, consider updosing Abilify in final meds assessment in AM; DC planing and associated goals discussed in detail ASSESSMENT/PLAN: descriptively improvement re-establish but did have side effects with increase of Bupropion to 300 mg 07/27/ will increase Bupropion to 225 mg and plan DC for tomorrow; will also increase Lamictal to 25 mg bid,CP focus on preparing patient for DC as d/w Nursing. 08/01/16 Brief DC Note DAY UPDATE: Objective: Vital Signs Temp Pulse Resp BP Pulse Ox 37.0 C 88 16 106/56 L 95 07/31/16 06:00 07/31/16 06:00 07/31/16 06:00 07/31/16 06:00 07/31/16 06:00 ICD10 Worksheet Patient Problems: Problems Problem Status Onset Bipolar II disorder Acute Depression Acute Suicidal ideation Acute
[2016-08-01 06:25] VITALS: BP 101/57; PULSE 77; RESP 12; TEMP 98.1; O2SAT 93
[2016-08-01] MEDS: ARIPiprazole 5 MG TAB PO SCH (08:19)
[2016-08-01] MEDS: LEVONORGESTREL ETHIN ESTRADIOL PO SCH (08:20)
[2016-08-01] MEDS: buPROPion 75 MG TAB PO SCH (08:20)
[2016-08-01] MEDS: buPROPion SR 150 MG TAB PO SCH (08:21)
--- NOTE | 2016-08-01 13:20 | SOAPPROG ---
SOAP Progress Note Assessment/Plan: Assessment: Plan: 07/26/16 16:30 DAY ' UPDATE/EXAM: Nursing reports pt is c/w cares/meds, slept better using Ambien. remains residually depressed and isolative/ on exam directly is disclosing in detail about her chronic syndromal history, meds response history; currently denies SI and is positive in engaging the workup and rx plan; more at ease since contacting work and knowing her job is secure; pt will obtain [facility] printout of meds prescribed over the past 1-2 years and get that to me today. ASSESSMENT/PLAN: residual depressive acuity - pt allying with inpt rx plan/ anticipate initiating definitive meds trial later today after reviewing [facility] spreadsheet of prescription history 07/27/16 14:26 DAY UPDATE/EXAM: Nursing reports pt telling staff that she slept well without Ambien and today her syndromal depression is slightly better a/w mood and energy ; she did start her Bupropion XL trial today @ 150 mg qam and is starting Abilify 2 mg bid today/ on direct exam she appears brighter, more spontaneous and more toned in speech; she thinks this is the natural course of her affective cycle declaring itself and she is slowly moving into her "wellness phase"; med reviewed and she accepts starting the Abilify today. ASSESSMENT/PLAN: improving likely secondary to cycle change as referenced/ continue workup and initiate Abilify trial 07/28/16 13:47 DAY UPDATE: Nursing report over past 24 hr pt has shown some variability in mood with observed irritability and dysphoria but on balance is improving; she continues to sleep better, c/w meds and cares, is attending groups. ON EXAM: presents as calm, conversant, cooperative;thoughts organized, denies SI ; does describe the above mentioned irritability and sense of "apathy" - she and I discuss the natural vulnerability to state change and the possibility of medication side effect; meds reviewed in more detail and we agree to monitor her mental status only and she continues to affirm that her improving slope is continuing; meds changes discussed and referenced. ASSESSMENT/PLAN: improving course sustained b/w ? today of depressive slippage or side effects/ will add Lamictal 25 mg hs, increase Bupropion XL to 300 mg qam and increase Abilify to 5 mg qam; sustain management plan with no change 07/31/16 13:02 DAY UPDATE/EXAM: Nursing reports pt was dyspeptic 07/29 and responded to dropping Wellbutrin from 300 mg t0 150 mg with resolution and did well the rest of the weekend including visit from stepmother/ on direct exam pt presents as calm and conversant, appears less dysphoric and reports psychomotor energy improving; agrees with DC tomorrow and with smaller increase in Bupropion of 75 mg, consider updosing Abilify in final meds assessment in AM; DC planing and associated goals discussed in detail ASSESSMENT/PLAN: descriptively improvement re-establish but did have side effects with increase of Bupropion to 300 mg 07/27/ will increase Bupropion to 225 mg and plan DC for tomorrow; will also increase Lamictal to 25 mg bid,CP focus on preparing patient for DC as d/w Nursing. 08/01/16 Brief DC Note 13:11 DAY UPDATE: Nursing reports pt has sustained her improving course over the past 24 hours; she has be free of and side effects from her medications which clears the way for her DC this PM. ON EXAM: pesents as calm, cooperative, conversant; mood neutral, affect continues to evidence more tone and broader range; again reports improving energy level consistent with resolving syndromal depression; able to discuss goals a/w f/u community rx - affective stabilization, improved interactive relatedness with emotional control allowing more affective expression; discussion covers med, good "fit" with psychotherapist, possible use of CBT groups. ASSESSMENT/PLAN: stable for DC today transport by to return to her home f/u with intake tomorrow with [facility] DC meds as referenced; given 30 day supply see Discharge Summary 08/01/16 13:19 Medications Generic Name Dose Route Start Last Admin Trade Name Freq PRN Reason Stop Dose Admin Bupropion HCl 150 mg 07/30/16 09:00 08/01/16 08:21 Wellbutrin Sr PO 01/26/17 08:59 150 mg DAILY MAEVE Bupropion HCl 75 mg 07/31/16 13:30 08/01/16 08:20 Wellbutrin PO 01/27/17 13:29 75 mg DAILY MAEVE Miscellaneous Medication 0 each 07/25/16 09:00 08/01/16 08:20 Levonorgestrel-Ethin Estradiol [Chateal-28 Tablet] PO 01/21/17 08:59 1 dose DAILY MAEVE Zolpidem Tartrate 10 mg 07/25/16 12:44 07/31/16 21:30 Ambien PO 01/21/17 12:43 10 mg HS PRN Sleep/Insomnia Lamictal 25 mg po bid Objective: Vital Signs Temp Pulse Resp BP Pulse Ox 36.7 C 77 12 101/57 L 93 08/01/16 06:00 08/01/16 06:00 08/01/16 06:00 08/01/16 06:00 08/01/16 06:00 ICD10 Worksheet Patient Problems: Problems Problem Status Onset Bipolar II disorder Acute Depression Acute Suicidal ideation Acute
[2016-08-02] MEDS ORDERED: lamoTRIgine 25 MG TAB PO SCH (09:00)
[2016-08-02] MEDS ORDERED: ARIPiprazole 5 MG TAB PO SCH (09:00)
--- NOTE | 2016-08-02 12:49 | BDS ---
[f rep st] BEHAVIORAL HEALTH DISCHARGE SUMMARY PATIENT IDENTIFICATION: The patient presented as a 31-year-old white female who is admitted to [address] [place] [address] for complaints of a depressive crisis including passive suicidal ideation. DISCHARGE DIAGNOSES: [place]er I: 1. Bipolar Disorder, Type 2 with a preponderance of syndrome of depression; current depressive exacerbation in first phase improvement. 2. Alcohol Abuse Disorder, currently in extended remission. 3. Remote history of Cocaine Use Disorder, in extended remission. .. 4. Question remote history of primary Eating Disorder, workup incomplete at time of discharge. Conger II: Deferred; workup incomplete at time of discharge. Conger III: 1. No active medical problems; medical history noncontributory. 2. Status post multiple cosmetic surgeries. Conger IV: Natural course of affective disorder untreated; relatively recent divorce with residual sadness; no other identified circumstantial and/or dynamic stressors identified in workup. Conger V: Discharge Global Assessment of Functioning, 50. DISPOSITION: 1. Patient discharged to return to her apartment where she lives with current boyfriend. 2. Psychiatric follow up, patient referred for intake appointment to the [facility]; appointment scheduled for 08/02 at 11 a.m. 3. 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 4. Prescribed medications at discharge as referenced below. REASON FOR ADMISSION: Ms. Mckeon presented with a chronic history of affective stability, onset in her mid teens. She was initially hospitalized for complaints of a depressive crisis following a manic episode. She then began her psychiatric treatment career which is extended over the past 12 years. There have been no further hospitalizations. There is no history of suicide attempts. She has been treated primarily over the past 12 years with medication management but has had several incidents of psychotherapy. She also has had extended periods of no psychiatric treatment, including medication management. Patient moved to [place] from [place] to "start a new life" following a divorce from a 5-year marriage. Patient had established a new romantic relationship before moving to [place] in January of 2016. Boyfriend moved from [place] to join her in May of 2015. Patient states she was in the mild depressive state of her affective cycle beginning before her move to [place] and sustained through 4-6 weeks prior to this admission. She states she then experienced a switch into progressive acuity associated with her syndromal depression. She states she experienced increasingly intense depressive mood, psychomotor retardation, diminished appetite, social withdrawal, disrupted sleep pattern. She began to experience passive but intensifying suicidal ideation over the week prior to admission. She was seen by an [facility] clinician on the day of admission who recommended the patient self-refer to the [facility] emergency room. Patient complied, was assessed medically and psychiatrically in the emergency room. She was found to be severely depressed, presenting with a risk of self-harm and an inability to manage herself safely in the community. She was sent on for acute admission to [address] [place] [address] on an M1 hold following medical clearance. Readers refer to the detailed Admission Psychiatric Assessment per Dr. Charlton dated 07/25 for further details. SIGNIFICANT MEDICAL FINDINGS: Physical exam in the emergency room and post admission by the [facility] consultant was negative for any focal or syndromal acuity. Lab screens included a CBC, BMP, beta HCG, blood alcohol, toxic screen , and TSH determination. All screens were unremarkable and/or within normal limits. Patient remained medically stable throughout her inpatient course of treatment on [address] [place] [address]. HOSPITAL COURSE: The patient presented on admission with severe dysphoria, psychomotor retardation, passive suicidal ideation, and a narrative response to questions consistent with the narrative information above. Workup revealed the patient had initially experienced mood state changes consistent with a Bipolar Disorder, Type 1 associated with the initial emergence of affective instability in her mid teens. The patient states that the cycles of mood swings changed through her early to mid 20s. She went on to describe typical cycles as involving extended times in what she termed "a mild depression," which allowed her to function stably and lasted for 4-6 months. She states she would then typically switch into a severe depressive state like what happened prior to this admission. She states the severe depression could last several months. She states this current episode was more severe which is why she agreed with coming into the hospitalization for safety and a treatment workup. She states she has been untreated for the past 12+ months including not taking any medication. She states historically when her acute depressive episode lifts after several months she can switch rapidly into her "wellness phase." She describes this as a state of increased energy, good functionality, diminished sleep time to 4-5 hours per night. She denies having typical manic episodes for a number of years but can recall manic states in earlier times. She described her medication response history in detail, stating that she would partially improve on a particular medication regimen, never clearing to full remission. She states the effectiveness of medication would seem to "wear out, " and she could return to mild depression that would then switch to severe depression. In the hospital the patient did begin to improve with her engagement with the treatment plan, including utilizing group therapy, visibility in the social milieu, psychotherapeutic interventions daily with myself. Medication was closely managed, and patient did initiate a polypharmacy regimen including Wellbutrin, Abilify, and Lamictal. The patient had utilized these medications in the past at lower doses. On hospital day 3, the patient experienced a switch, reported as improved mood, more energy, consistent with the mild hypomanic cycles referenced by history. On hospital day 4, the patient experienced mild activation and irritability thought to be a possible side effect of Wellbutrin. On 07/29, patient clearly experienced toxic side effects from Wellbutrin as the activation worsened as well as she became acutely dyspeptic. Her Wellbutrin dosing was dropped from 300 back to 150 mg daily, and she responded promptly with clearing of the side effect complaints. I did increase her Wellbutrin to 225 mg daily on 07/30, and she tolerated this with no reemerging side effects. The overall goal of her treatment was to stabilize mental status as well as establish a polypharmacy to be managed actively post discharge. With sustained improvement, patient was discharged to be followed up in the [facility] with an intake appointment scheduled for 08/02. CONDITION ON DISCHARGE: Improved. MENTAL STATUS EXAM: On final contact, the patient presented as affectively stable, neutral mood, broader range of affect and normalized tone expressed; patient's thought process was logical, linear, and goal-focused. Medications and goals going forward with medication management were discussed in detail. The patient also reviewed in detail her interest in having a psychotherapist with the focus on improving her social relatedness as well as relieving the chronic sense of shame associated with her affective instability. We also discussed unfinished affective resolution of the divorce process as another useful therapeutic focus. The patient denied any present suicidal ideation and reiterated her [place] with the followup treatment plan in the community. RISKS: Patient was deemed a low risk for self-harm, harm to others, or inability to manage herself safely in the community. . ASSETS: The patient's alliance with followup treatment; support of her live-in boyfriend for her pursuit of treatment; schedule discharge plan contacts as referenced above. DISCHARGE MEDICATIONS: 1. Bupropion SR 150 mg p.o. q.a.m. 2. Bupropion RS 75 mg p.o. daily at 1300. 3. Lamictal 25 mg p.o. twice daily. 4. Ambien 5 mg p.o. q.a.m. 5. Ambien 10 mg p.o. h.s. p.r.n. for sleep. Patient given 30-day prescriptions for these medications at discharge. DISCHARGE LEGAL STATUS: Voluntary status. /[id number]/MODL MTDD
== END 2016-08-01 14:20 | disposition home or self-care (01) | DRG 885 ==
LOC: BBEH 07-25 01:30
PROVIDERS: ADMIT Psychiatry & Neurology Behavioral Neurology & Neuropsychiatry; ATTEND Psychiatry & Neurology Behavioral Neurology & Neuropsychiatry
DX: F31.81 Bipolar II disorder (principal); F10.10 Alcohol abuse, uncomplicated
CPT/HCPCS: 80305; G0480